=== PATIENT | female | born 2000 | race Caucasian/White ===

== ENCOUNTER 2025-02-13 20:33 | Emergency (ER) | payer OTHER, SELFPAY ==
[2025-02-13 20:36] VITALS: BP 158/106
[2025-02-13 21:02] LABS: % Basophils 0.4 % (0-2); % Eosinophils 1.8 % (0-6); % Immature Granulocytes 0.4 % (0-0.5); % Lymphocytes 15.2 % (20.5-51.1); % Monocytes 6.1 % (1.7-9.3); % Neutrophils 76.1 % (42.2-75.2); Absolute Basophils 0.1 10^3/uL (0-0.2); Absolute Eosinophils 0.3 10^3/uL (0-0.7); Absolute Immature Granulocytes 0.1 10^3/uL (0-0.05); Absolute Lymphocytes 2.2 10^3/uL (1.2-3.4); Absolute Monocytes 0.9 10^3/uL (0.1-0.6); Absolute Neutrophils 10.8 10^3/uL (1.4-6.5); Hemoglobin 14.4 g/dL (12.0-16.0); Mean Corp Hgb Conc. 35.1 g/dL (33.0-37.0); Mean Corpuscular Hgb 29.2 pg (27.0-31.0); Mean Corpuscular Volume 83.2 fL (81.0-99.0); Mean Platelet Volume 9.1 fL (7.4-10.4); Nucleated Red Blood Cells % 0 %; Platelet Count 347 10^3/uL (130-400); Red Blood Cell Count 4.93 10^6/uL (4.20-5.40); Red Cell Dist. Width 13.2 % (11.5-14.5); White Blood Cell Count 14.2 10^3/uL (4.8-10.8)
[2025-02-13 21:06] LABS: Urine Albumin Negative (Neg - Trace); Urine Bilirubin Negative (Negative); Urine Character Clear (Clear); Urine Color Yellow; Urine Glucose Negative (Negative); Urine Ketone 1+ (Negative); Urine Leukocyte 1+ (Negative); Urine Nitrite Negative (Negative); Urine Occult Blood 1+ (Negative); Urine Urobilinogen Negative (Neg - 1+)
[2025-02-13 21:18] LABS: HCG, Serum Qualitative Screen Negative
[2025-02-13 21:21] LABS: ALT (SGPT) 39 U/L (0-35); AST (SGOT) 25 U/L (14-36); Albumin 4.7 g/dl (3.5-5.0); Alkaline Phosphatase 70 U/L (38-126); Blood Urea Nitrogen 14 mg/dl (7-17); Calcium 9.4 mg/dl (8.4-10.2); Carbon Dioxide 27 mmol/L (22-30); Chloride 100 mmol/L (98-107); Glucose 102 mg/dl (70-99); Lipase 87 U/L (23-300); Potassium 3.8 mmol/L (3.5-5.1); Sodium 136 mmol/L (135-145); Total Bilirubin 0.8 mg/dl (0.2-1.3); Total Protein 8.3 g/dl (6.3-8.2); eGFR > 60.00
[2025-02-13 21:30] LABS: Urine Squamous Cell >30 /LPF (Few)
[2025-02-13 21:31] LABS: Urine Bacteria Few (Negative); Urine Red Blood Cell 0-2 /HPF (0-2)
[2025-02-13] MEDS: TYLENOL 1000 MG PO (22:34)
--- NOTE | 2025-02-13 23:34 | ED.GENMED ---
History of Present Illness
General
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
Source: patient
Exam Limitations: none
Time Seen by Provider: 02/13/25 22:55
Nursing documentation reviewed up to this point in time: agreed with
History of Present Illness
History of Present Illness:
The patient is a 24-year-old female who reports 1-1/2 weeks of left lower abdominal pain. Patient reports that she tried to have intercourse last night, and it made the symptoms much worse. She went to urgent care and was referred to the emergency
department today. Patient denies vaginal discharge and vaginal bleeding. She denies a history of chlamydia, gonorrhea or any other STD. She reports that she is not concerned about having an STD as she is monogamous and with the same sexual
partner for a long time. Patient reports that she has had no associated nausea, vomiting, constipation, but only has had very mild nonbloody diarrhea. The patient reports that she had no idea she had a fever until presenting to the emergency
department today, as she has not had a fever prior to today. She denies headache, sore throat, cough, rash, and ear pain.
Past History
Past History
ED Past Medical History: Other (Upper GI bleed)
ED Past Surgical History: Other
Social History
Tobacco: Non-smoker
Alcohol: Other
Drug: None
Personal: Other
Living: with family
Employment: Other
Family History
Family History: Other
Review of Systems
Review of Systems
Allergies reviewed?: Yes
All Other Systems: ROS reviewed and negative except as documented in HPI and ROS
Constitutional: Reports no symptoms
EENT: Reports no symptoms
Respiratory: Reports no symptoms
Cardiac: Reports no symptoms
ABD/GI: Reports abdominal pain and diarrhea
: Reports no symptoms
Musculoskeletal: Reports no symptoms
Skin: Reports no symptoms
Neurological: Reports no symptoms
Endocrine: Reports no symptoms
Hematologic/Lymphatic: Reports no symptoms
Psychiatric: Reports no symptoms
Phy Exam
Physical Exam
Physical Exam:
Physical Exam
General: no apparent distress, not acutely ill
Neck: supple. no meningeal signs. normal psoterior pharynx
Heart: s1/s2 regular rate and rhythm, no murmur. equal radial pulses.
Lungs: no acute respiratory distress. clear bilaterally
Abdomen: Soft. Nondistended. No rebound or guarding. Normal bowel sounds. Left mid and lower abdominal pain tenderness. No pulsatile mass.
Neuro: alert and oriented. no focal neurological deficits
Skin: no rash
Psychiatric: well kept. interactive and cooperative
Extremities: no edema. no calf tenderness. negative homans. good distal pulses
Course
Orders/Labs/Results
Orders:
Orders
02/13/25 20:44
Test Result ONCE
02/13/25 20:52
Complete Blood Count/With Diff Urgent
Comprehensive Metabolic Panel Urgent
HCG, Serum Qualitative Screen Urgent
Lipase Urgent
Monotest Urgent
Comment: ADDED
Urine Microscopic Reflex Cult Urgent
Urine Reflex Culture from UA [Urinalysis Reflex To Culture] Urgent
Date Specimen was Collected: 02/13/25
Time Specimen was Collected: 20:43
Urine Culture Urgent
HEMALATHA Source: U
Specimen Description:
Date Specimen was Collected: 02/13/25
Time Specimen was Collected: 20:43
02/13/25 22:32
Acetaminophen [Tylenol] 1,000 mg .ROUTE .STK-MED ONE
02/13/25 22:33
Acetaminophen [Tylenol] 1,000 mg PO NOW STA
02/13/25 23:33
Ketorolac [Toradol] 30 mg IV NOW STA
02/14/25
CT Abd/pelvis W Iv Cont Urgent
Reason For Exam: LLQ pain, fever
02/14/25 01:44
US Pelvis W Transvag Combined Stat
Reason For Exam: L adenexal cyst
02/14/25 01:47
Add On- LAB Urgent
Tests Added?: monotest
02/14/25 01:48
0.9% Sodium Chloride 1000 ml [Nss] 1,000 ml IV BOLUS
02/14/25 02:15
COVID-19 Antigen Urgent
Source: Nasal Swab
Influenza A+B Rapid Molecular Urgent
HEMALATHA Source: Nasal Swab
Specimen Description:
Abnormal Lab Results
02/13/25
20:52
WBC 14.2 H 10^3/uL
(4.8-10.8)
Abs Immat Gran (auto) 0.1 H 10^3/uL
(0-0.05)
Absolute Neuts (auto) 10.8 H 10^3/uL
(1.4-6.5)
Absolute Monos (auto) 0.9 H 10^3/uL
(0.1-0.6)
Neutrophils % 76.1 H %
(42.2-75.2)
Lymphocytes % 15.2 L %
(20.5-51.1)
Glucose 102 H mg/dl
(70-99)
ALT 39 H U/L
(0-35)
Total Protein 8.3 H g/dl
(6.3-8.2)
Urine Ketones 1+ A
(Negative)
Ur Occult Blood Reflex 1+ A
(Negative)
Leukocyte Esterase Rfl 1+ A
(Negative)
Urine Bacteria (Reflex) Few A
(Negative)
Monoscreen Positive A
(Negative)
02/13/25 20:52
02/13/25 20:52
Vital Signs
Initial and Last Documented VS:
Initial Vital Signs
Temp Pulse Resp BP Pulse Ox
98.7 F 117 20 158/106 100
02/13/25 20:36 02/13/25 20:36 02/13/25 20:36 02/13/25 20:36 02/13/25 20:36
Last Documented Vital Signs
Temp Pulse Resp BP Pulse Ox
98.1 F 92 16 102/54 99
02/14/25 03:39 02/14/25 03:41 02/14/25 03:41 02/14/25 03:41 02/14/25 03:41
MDM/Problems Addressed
Differential Diagnosis Includes:
Acute diverticulitis, PID, TOA
MDM/Problems Addressed:
Patient reports chronic left-sided abdominal pain
Chronic conditions affecting care:
Peptic ulcer disease
Acute Exacerbation and/or Progression of Chronic Illness:
Patient may have acute exacerbation of peptic ulcer disease
*Radiology
Radiology exam reviewed: radiology read reviewed
*Pulse Oximetry
Patient hypoxic: no
*EKG
Interpreted by ED Provider?: NA
*Master Technician Interpretation
Rate: Master Technician- N/A
*Critical Care Note
Total Time (30-74mins, 75-104mins- exclusive of procedures): Not Applicable
Data Reviewed
Review of Other/Old Records Reveals: Radiology Studies (Pelvic ultrasound 05/2022 showed an IUP that was 4 weeks 6 days)
Source: patient
Patient Management
Social determinants of health affecting care: Living situation and Strong social support
Discussion with other providers: Other (Case discussed with Dr. Castaneda who felt patient could safely go home if her pain was under control with counseling about signs of torsion)
Escalation/DeEscalation of care consider admission/obs:
4:15 am Patient continues to look well and states that her pain is nearly gone. I suspect that her fever is from mono. Patient does admit to feeling fatigue. She appears nontoxic, however.
There is no sign of UTI. Patient counseled about signs and symptoms of ovarian torsion and knows to return with any worsening pain or vomiting.
ED Attending Note
-
Portions of this chart may have been created with voice recognition software.� Occasional wrong word or��sound alike� substitutions may have occurred due to the inherent limitations of voice recognition software.
Discharge Plan
Departure
Patient Disposition: Home (Routine Discharge)
Date of Disposition: 02/14/25
Time of Disposition: 04:07
Patient with high blood pressure during this ER visit?: No
Condition: Good
Covid-19: Not Applicable
Discharge Problem:
Vanessa Lockwood virus positive mononucleosis syndrome, Hemorrhagic cyst of left ovary
Instructions: Mononucleosis Test, Ovarian cyst - ED discharge instructions
Prescriptions:
No Action
prochlorperazine maleate 10 MG tablet
10 mg PO Q8HPRN PRN (Reason: nausea) Qty: 14 1RF
Referrals:
Sarina Castaneda, DO [Active] - (Call to follow-up if you are unable to make an appointment with your own auto technician)
Tristen Frias, DO [Family Provider] -
Activity Restrictions/Additional Instructions:
You have a fever likely from a virus called Alfalfa (also known as Vanessa-Lockwood virus)
Take 1000 mg of Tylenol every 4-6 hours for pain and fever.
Please call and follow-up with your auto technician as soon as possible. Please return to the hospital if your left-sided abdominal pain gets suddenly more severe or is associated with vomiting
Interventions
Interventions:
*Risk Screen - Suicide Last Done: 02/13/25 20:36
*General Assessment Last Done: 02/13/25 20:36
*Neglect/Abuse Screening Last Done: 02/13/25 20:36
*ED- Fall Risk Assessment Last Done: 02/13/25 20:42
*ED COVID-19 Vaccine History Last Done: 02/13/25 20:42
ED-Female Genitourinary Assessment Last Done: 02/13/25 22:43
Discharge Date and Time
Print Language: HUNGARIAN
[2025-02-13] MEDS: TORADOL 30 MG IV (23:51)
[2025-02-14 00:09] VITALS: BP 119/66
[2025-02-14 02:16] VITALS: BP 139/74
[2025-02-14] MEDS: NSS 1000 IV (02:17)
[2025-02-14 02:20] VITALS: BMI 44.0
[2025-02-14 02:47] LABS: COVID-19 Antigen Negative (Negative)
[2025-02-14 02:59] LABS: Monotest Positive (Negative)
[2025-02-14 03:41] VITALS: BP 102/54
[2025-02-14 04:00] VITALS: BP 91/49
[2025-02-14 04:36] VITALS: BP 91/49
== END 2025-02-14 04:30 | disposition home or self-care (01) ==
LOC: EMR 20:33
PROVIDERS: Emergency Medicine; EMERGENCY PHYSICIAN Emergency Medicine; FAMILY PHYSICIAN Internal Medicine
DX: B27.00 Gammaherpesviral mononucleosis without complication (principal); N83.202 Unspecified ovarian cyst, left side; Z11.52 Encounter for screening for COVID-19
CPT/HCPCS: 99285; 96374; 96361; 36415; 74177; 76830; 76856; 80053; 81003; 81015; 82784; 83690; 84703; 85025; 86308; 87086; 87502; 87811; Q9967

== ENCOUNTER 2025-08-15 12:30 | Emergency (ER) | payer OTHER, SELFPAY ==
[2025-08-15 12:32] VITALS: BP 128/90
--- NOTE | 2025-08-15 13:35 | ED.GENMED ---
History of Present Illness
<Marcio Brown MD, Resident - Last Filed: 08/15/25 14:55>
General
Chief Complaint: DVT/Possible Blood Clot
Source: patient
Time Seen by Provider: 08/15/25 13:28
History of Present Illness
History of Present Illness:
Patient is a 25-year-old female who presents to the emergency department with right lower extremity pain. She was in her normal state of health until last evening when both of her legs started to hurt late in the evening. He had been very active
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 She did not have any falls or any trauma associated with the pain. She spends many hours a day standing and moving around at her place of work. She has a
history of left lower extremity DVT at 13 years old but has not had a DVT ever since. She is not sure about the cause of her prior DVT. She takes Celexa daily and recently took Plan B. She also took Lovenox for 6 weeks after her . Though
both of her legs hurt her last night she went to bed and when she woke up her right leg was the only one that remains sore. She characterizes the pain as a burning sensation in the calf and [id number] in her right toes occasionally. She is
able to ambulate normally. She does not have any chest pain, shortness of breath, or chest tightness. She does not have any nausea vomiting or diarrhea. She does not have any balance issues.
Past History
<Marcio Brown MD, Resident - Last Filed: 08/15/25 14:55>
Past History
ED Past Medical History: Other (Upper GI bleed)
ED Past Surgical History: Other
Social History
Tobacco: Non-smoker
Alcohol: Other
Drug: None
Personal: Other
Living: with family
Employment: Other
Family History
Family History: Other
Review of Systems
<Marcio Brown MD, Resident - Last Filed: 08/15/25 14:55>
Review of Systems
Constitutional: Reports no symptoms
EENT: Reports no symptoms
Respiratory: Reports no symptoms
Cardiac: Reports no symptoms
ABD/GI: Reports no symptoms
: Reports no symptoms
Musculoskeletal: Reports muscle pain ( Left calf)
Skin: Reports no symptoms
Neurological: Reports no symptoms
Endocrine: Reports no symptoms
Hematologic/Lymphatic: Reports no symptoms
Psychiatric: Reports no symptoms
Phy Exam
<Marcio Brown MD, Resident - Last Filed: 08/15/25 14:55>
General Physical Exam
General Presentation: well appearing and no apparent distress
General age: appears stated age
General Skin: warm and dry
General Habitus: normal
General Mental: alert
General Hydration: appears well hydrated
Cardiovascular Exam
Cardiovascular Exam: regular rate/rhythm, no edema, no gallop, no JVD and no murmur
Pulmonary Exam
Pulmonary Exam: lungs clear, no respiratory distress, no rales, chest non tender, no crackles, no rhonchi, no stridor, no wheezing and no cough
Musculoskeletal Exam
Musculoskeletal Exam: full ROM
Skin Exam
Skin Exam: normal color, warm/dry, no rash and no petechia
Psychiatric Exam
Psychiatric Exam: normal mood/affect
Course
<Marcio Brown MD, Resident - Last Filed: 08/15/25 14:55>
Orders/Labs/Results
Orders:
Orders
08/15/25 13:05
US Periph Venous LOWER Ext RT Urgent
Comment:
Reason For Exam: r/o dvt
Vital Signs
Initial and Last Documented VS:
Initial Vital Signs
Temp Pulse Resp BP Pulse Ox
97.8 F 86 16 128/90 100
08/15/25 12:32 08/15/25 12:32 08/15/25 12:32 08/15/25 12:32 08/15/25 12:32
Last Documented Vital Signs
Temp Pulse Resp BP Pulse Ox
97.8 F 86 16 128/90 100
08/15/25 12:32 08/15/25 12:32 08/15/25 12:32 08/15/25 12:32 08/15/25 13:35
<Stacy Mcmillan DO - Last Filed: 08/15/25 14:49>
Orders/Labs/Results
Orders:
Orders
08/15/25 13:05
US Periph Venous LOWER Ext RT Urgent
Comment:
Reason For Exam: r/o dvt
Vital Signs
Initial and Last Documented VS:
Initial Vital Signs
Temp Pulse Resp BP Pulse Ox
97.8 F 86 16 128/90 100
08/15/25 12:32 08/15/25 12:32 08/15/25 12:32 08/15/25 12:32 08/15/25 12:32
Last Documented Vital Signs
Temp Pulse Resp BP Pulse Ox
97.8 F 86 16 128/90 100
08/15/25 12:32 08/15/25 12:32 08/15/25 12:32 08/15/25 12:32 08/15/25 13:35
<Marcio Brown MD, Resident - Last Filed: 08/15/25 14:55>
*Pulse Oximetry
SaO2: 100
Oxygen Mode of Delivery: Room air
Patient hypoxic: no
*Critical Care Note
Total Time (30-74mins, 75-104mins- exclusive of procedures): Not Applicable
<Marcio Brown MD, Resident - Last Filed: 08/15/25 14:55>
Update Note
Update Note:
Problem List:
Right lower limb pain
Plan:
ultrasound of the right lower limb
Differential Diagnoses:
exercise-induced muscle myalgia
lower extremity DVT
Radiology:
- right lower extremity ultrasound 08/15/2025: No evidence of DVT of the right lower extremity
EKG: not applicable
Labs: not applicable
Updates:
right lower extremity ultrasound reveals no DVT.
Based on presentation and ultrasound this patient likely has exercise-induced myalgia
supportive counseling and education provided at the bedside. recommendations for [id number] analgesia given
patient would like to be discharged from the emergency department. There are no barriers that would impede the patient from being safely discharged at the present time.
ED Attending Note
<Marcio Brown MD, Resident - Last Filed: 08/15/25 14:55>
-
Portions of this chart may have been created with voice recognition software.� Occasional wrong word or��sound alike� substitutions may have occurred due to the inherent limitations of voice recognition software.
<Stacy Mcmillan DO - Last Filed: 08/15/25 14:49>
ED Attending Note
Patient seen and examined by attending physician: Yes
I performed the substantive portion of visit, reviewed & personally made and approve the management plan that is documented in note by myself or SAM.: Yes
I performed a history and physical exam of patient and discussed management with resident, I reviewed resident's note and agree with documented findings and plan of care.: Yes
ED Attending Note:
25-year-old female without significant past medical history presenting for pain in her right lower extremity. Patient reports last evening she was having pain in both of her legs in her calves. She described it as a soreness and a burning pain,
[id number]. 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 Denies any known history of blood clots, however does note that she was on Lovenox 6 weeks after
of a child, unclear why. Denies any present numbness or tingling. Denies any fever. Vital signs are normal.
On exam, patient is resting comfortably, no acute distress or discomfort. No significant asymmetry or swelling to the lower extremities. No erythema or warmth on palpation. Palpable pulses bilaterally as well as sensation. Without present
concern for neurovascular injury. No signs of infection. No report of trauma or any deformities without concern for fracture. DVT ultrasound obtained prior to my assessment given patient's report of pain, negative for DVT. At this time suspect
musculoskeletal strain. Feel stable for discharge with outpatient supportive therapy. Offered Toradol which patient declined. Return precautions discussed and patient verbalized understanding
Discharge Plan
Departure
Patient Disposition: Home (Routine Discharge)
Date of Disposition: 08/15/25
Time of Disposition: 14:42
Patient with high blood pressure during this ER visit?: No
Discharge Problem:
Myalgia
Prescriptions:
No Action
prochlorperazine maleate 10 MG tablet
10 mg PO Q8HPRN PRN (Reason: nausea) Qty: 14 1RF
Referrals:
Tristen Frias, [Family Provider, Internal Medicine] - Follow up in 1 week
Stand Alone Forms: Return to Work
Interventions
Interventions:
*Risk Screen - Suicide Last Done: 08/15/25 12:32
*Neglect/Abuse Screening Last Done: 08/15/25 12:32
*ED- Fall Risk Assessment Last Done: 08/15/25 12:32
ED- Cardiac Assessment Last Done: 08/15/25 13:10
ED-Peripheral Vascular Assessment Last Done: 08/15/25 13:10
ED-Skin Assessment Last Done: 08/15/25 13:10
Discharge Date and Time
Print Language: SINHALA
== END 2025-08-15 15:26 | disposition home or self-care (01) ==
LOC: EMR 12:30
PROVIDERS: EMERGENCY PHYSICIAN Student in an Organized Health Care Education/Training Program; FAMILY PHYSICIAN Internal Medicine
DX: M79.10 Myalgia, unspecified site (principal); Z86.718 Personal history of other venous thrombosis and embolism
CPT/HCPCS: 99284; 93971